=== PATIENT | female | born 1985 | race Caucasian/White ===

== ENCOUNTER 2016-10-13 06:07 | Emergency (ER) | payer MEDICAID | END 2016-10-13 06:47 | disposition home or self-care (01) | LOC: D.ER 06:07 | DX: K08.89 Other specified disorders of teeth and supporting structures (principal); K02.9 Dental caries, unspecified; S02.5XXA Fracture of tooth (traumatic), initial encounter for closed fracture; X58.XXXA Exposure to other specified factors, initial encounter; Y93.89 Activity, other specified; Y92.019 Unspecified place in single-family (private) house as the place of occurrence of the external cause; K04.7 Periapical abscess without sinus ==

== ENCOUNTER 2016-12-06 19:42 | Emergency (ER) | payer MEDICAID | END 2016-12-06 21:45 | disposition home or self-care (01) | LOC: D.ER 19:42 | DX: G43.909 Migraine, unspecified, not intractable, without status migrainosus (principal) ==

== ENCOUNTER 2017-01-10 21:13 | Emergency (ER) | payer MEDICAID | END 2017-01-11 00:37 | disposition home or self-care (01) | LOC: D.ER 21:13 | DX: G43.909 Migraine, unspecified, not intractable, without status migrainosus (principal); F17.200 Nicotine dependence, unspecified, uncomplicated ==

== ENCOUNTER 2017-04-06 14:07 | Emergency (ER) | payer MEDICAID | END 2017-04-06 15:08 | disposition left against medical advice (07) | LOC: D.ER 14:07 | DX: M79.674 Pain in right toe(s) (principal) ==

== ENCOUNTER 2017-05-06 10:14 | Emergency (ER) | payer MEDICAID ==
[2017-05-06 12:55] LABS: HCG URINE NEGATIVE (NEGATIVE)
== END 2017-05-06 13:03 | disposition home or self-care (01) ==
LOC: D.ER 10:14
PROVIDERS: Nurse Practitioner Family
DX: S49.91XA Unspecified injury of right shoulder and upper arm, initial encounter (principal); W19.XXXA Unspecified fall, initial encounter; Y93.89 Activity, other specified; Y92.89 Other specified places as the place of occurrence of the external cause; F17.200 Nicotine dependence, unspecified, uncomplicated

== ENCOUNTER → 2017-05-24 | Emergency (ER) | payer MEDICAID | END | disposition home or self-care (01) | LOC: D.ER 12:39 | DX: J20.9 Acute bronchitis, unspecified (principal) ==